=== PATIENT | female | born 1960 | race African-American/Black ===

== ENCOUNTER 2021-08-05 14:24 | Emergency (ER) | payer OTHER ==
[~2021-08-05] VITALS: Ht 160 cm; Wt 51.7 kg
[2021-08-05 15:38] LABS: ABSOLUTE NEUTROPHILS 8.3 thou/uL (1.4-8.2); BASOPHILS 0.3 % (0.0-2.0); EOSINOPHILS 0.1 % (0.0-3.0); HEMATOCRIT 36.7 % (37.0-47.0); LYMPHOCYTES 13.7 % (24.0-44.0); MCH 27.4 pg (26.0-34.0); MCHC 32.6 g/dL (28.0-37.0); MCV 84.1 fL (80.0-100.0); MONOCYTES 9.9 % (1.0-8.0); PLATELET COUNT 175 thou/uL (150-400); RBC 4.36 mil/uL (4.20-5.00); RDW 13.5 % (10.5-14.5); WBC 10.9 thou/uL (4.0-11.0)
[2021-08-05 15:47] LABS: ANION GAP 7 mmol/L (7-16); BUN 5 mg/dL (7-18); CALCIUM 8.9 mg/dL (8.5-10.1); CHLORIDE 98 mmol/L (98-107); CO2 25 mmol/L (21-32); CREATININE 0.7 mg/dL (0.6-1.0); GLUCOSE 102 mg/dL (74-106); POTASSIUM 3.5 mmol/L (3.5-5.1); SODIUM 130 mmol/L (136-145)
[2021-08-05 15:49] LABS: APTT 30.6 Seconds (24.5-32.8); INR 1.03; PROTIME 11.2 Seconds (10.5-12.1)
[2021-08-05 15:57] LABS: ALBUMIN 2.9 g/dL (3.4-5.0); SGOT 15 U/L (15-37); SGPT 15 U/L (30-65); TOTAL BILIRUBIN 0.5 mg/dL (0.2-1.0); TOTAL PROTEIN 7.4 g/dL (6.4-8.2)
[2021-08-05 18:19] VITALS: BP 126/74
--- NOTE | 2021-08-06 07:47 | EKG ---
[address] [id number] [place] [address] ELECTROCARDIOGRAM REPORT Name: MARIVEL OSUNA Room #: [facility] Jimenes#: [id number] Admission: 08/05/21 Attend Phys: Discharge: 08/05/21 Date of : 58 Report #: [id number] [facility] ED Test Date: 2021-08-05 Test Time: 14:39:36 Pat Name: MARIVEL OSUNA Department: Room: Gender: F Supervisor Film Processing: ANA LILIA : 1960 Requested By: Danette Garcia Order Number: [id number] MD: Rakesh Perea Measurements Intervals [place] Rate: 97 P: 74 CT: 153 QRS: 41 QRSD: 77 T: 41 QT: 319 QTc: 405 Interpretive Statements Sinus rhythm Compared to ECG 04/13/1997 10:04:00 Marked baseline artifact is now present limiting comparison Electronically Signed On 08-06-2021 7:47:27 [employer] by Rakesh Perea [email or web address] <ELECTRONICALLY SIGNED> By: Rakesh Perea MD, [facility] 08/06/21 0747 [id number] Rakesh Perea MD, FACC /EPI
== END 2021-08-05 18:21 | disposition home or self-care (01) ==
LOC: ER 14:24
PROVIDERS: Nurse Practitioner Family
DX: J18.9 Pneumonia, unspecified organism (principal); Z20.822 Contact with and (suspected) exposure to COVID-19; J45.909 Unspecified asthma, uncomplicated; Z88.5 Allergy status to narcotic agent